=== PATIENT | female | born 1965 | race Two or more races ===

== ENCOUNTER 2016-04-01 17:03 | Emergency (ER) | payer OTHER ==
[~2016-04-01] VITALS: Ht 177.8 cm; Wt 92.5 kg
[~2016-04-01 17:03] MED LIST: ESCI20TA PO; LOSA25TA13 PO
[2016-04-01] MEDS ORDERED: [UNRECOGNIZED DRUG - CODE] PO (17:24)
[2016-04-01] MEDS ORDERED: ESTR-3 (17:24)
[2016-04-01] MEDS ORDERED: BUPR200T2 PO (17:24)
[2016-04-01] MEDS ORDERED: HYDROCODONE/APAP 10/325MG 1 EA TABLET ONE (17:49)
[2016-04-01] MEDS ORDERED: HYDROCODONE/APAP 10/325MG 1 EA TABLET PO ONE (18:00)
[2016-04-01 20:46] VITALS: BP 124/67
== END 2016-04-01 20:46 | disposition home or self-care (01) ==
LOC: ER 17:06
DX: S09.90XA Unspecified injury of head, initial encounter (principal); S30.0XXA Contusion of lower back and pelvis, initial encounter; I10 Essential (primary) hypertension; F32.9 Major depressive disorder, single episode, unspecified; Z96.651 Presence of right artificial knee joint; Z98.890 Other specified postprocedural states; Z88.8 Allergy status to other drugs, medicaments and biological substances; V80.010A Animal-rider injured by fall from or being thrown from horse in noncollision accident, initial encounter; Y93.52 Activity, horseback riding; Y92.89 Other specified places as the place of occurrence of the external cause; Y99.8 Other external cause status
CPT/HCPCS: 70450; 72100; 72170; 74176; 99284; A4606; Z7610

== ENCOUNTER 2016-07-17 11:53 | Emergency (ER) | payer MEDICAID, OTHER ==
[~2016-07-17] VITALS: Ht 177.8 cm; Wt 96.2 kg
[~2016-07-17 11:53] MED LIST changes: +BUPR200T2 PO; +ESTR-3; +[UNRECOGNIZED DRUG - CODE] PO
--- NOTE | 2016-07-17 12:20 | NUR ---
PT BIB SELF C/O L HAND CELLULITIS S/P CAT BITE BY HER CAT ON THURSDAY NIGHT. DENIES FEVER, CHILLS. NAD NOTED. TETANUS UTD. IN ER BED 21.
[2016-07-17] MEDS ORDERED: AMOX/CLAVULANATE 875 MG TABLET ONE (12:58)
[2016-07-17] MEDS ORDERED: SULFAMETH/TRIMETH 800/160 MG 1 UDTAB TABLET PO ONE ×2 (12:58→13:00)
[2016-07-17] MEDS ORDERED: AMOX/CLAVULANATE 875 MG TABLET PO ONE (13:00)
--- NOTE | 2016-07-17 13:08 | NUR ---
WOUND CARE BY EMT - JONNY. Patient discharged to home in stable condition. Written and verbal after care instructions given. Patient verbalizes understanding of instruction.
[2016-07-17 13:10] VITALS: BP 165/57
== END 2016-07-17 13:11 | disposition home or self-care (01) ==
LOC: ER 11:57
DX: L03.114 Cellulitis of left upper limb (principal); I10 Essential (primary) hypertension; F32.9 Major depressive disorder, single episode, unspecified; Z96.651 Presence of right artificial knee joint; W55.01XA Bitten by cat, initial encounter; Y93.89 Activity, other specified; Y92.89 Other specified places as the place of occurrence of the external cause; Y99.8 Other external cause status; Z88.8 Allergy status to other drugs, medicaments and biological substances
CPT/HCPCS: A4606; Z7610